=== PATIENT | female | born 1990 | race Asian ===

== ENCOUNTER 2021-06-15 07:54 | Day surgery (SDC) | payer OTHER, MEDICAID, SELFPAY ==
[~2021-06-15] VITALS: Ht 154.9 cm; Wt 59.9 kg
[2021-06-15 08:10] LABS: HCG,QUAL RESULT NEGATIVE (NEGATIVE)
[2021-06-15] MEDS ORDERED: MEPERIDINE 100 MG INJ. 100 MG/ML VIAL ONE (09:23)
[2021-06-15] MEDS ORDERED: MIDAZOLAM HCL 5 MG/5 ML VIAL ONE (09:24)
[2021-06-15 15:17] VITALS: BP_SYST 118
== END 2021-06-15 10:55 | disposition home or self-care (01) ==
LOC: SDS 07:54 → SMU 07:54 → SDS 10:55
PROVIDERS: ATTEND Internal Medicine Gastroenterology
DX: R10.9 Unspecified abdominal pain (principal); K29.50 Unspecified chronic gastritis without bleeding; Z20.822 Contact with and (suspected) exposure to COVID-19; Z79.899 Other long term (current) drug therapy
CPT/HCPCS: 36415; 43239; 84703; 87081; 87426; 88305; 88312; 88313; 99152; G0378; J2175; J2250; U0003